=== PATIENT | female | born 1935 | race Caucasian/White ===

== ENCOUNTER 2021-07-06 02:20 | Emergency (ER) | payer SELFPAY ==
[2021-07-06] MEDS ORDERED: Morphine 4 MG/ML VIAL ONE (04:05)
[2021-07-06] MEDS ORDERED: Ondansetron PF 4 MG/2 ML Vial ONE ×2 (04:05→04:44)
[2021-07-06] MEDS ORDERED: Ibuprofen 200 MG TAB ONE (04:11)
[2021-07-06] MEDS ORDERED: Fentanyl 100 MCG/2 ML VIAL ONE (04:30)
[2021-07-06 04:31] LABS: #Basophils 0.1 thou/uL (0.0-0.2); #Eosinphils 0.1 thou/uL (0.0-0.7); #Lymphocytes 1.2 thou/uL (1.20-3.40); #Monocytes 0.4 thou/uL (0.11-0.59); #Neutrophils 6.7 thou/uL (1.40-6.50); %Basophils 0.6 % (0.0-1.0); %Eosinophils 0.9 % (0.0-10.0); %Lymphocytes 13.9 % (21.0-51.0); %Monocytes 4.4 % (0.0-10.0); %Neutrophils 80.1 % (42.0-75.0); Hemoglobin 16.9 g/dL (12.0-16.0); Mean Corpuscular HGB CONC 33.9 g/dL (32.0-36.0); Mean Corpuscular Hemoglobin 30.8 pg (27.0-31.0); Mean Corpuscular Volume 90.9 fL (78.0-98.0); Mean Platelet Volume 7.4 fL (7.4-10.4); Platelet Count 258 thou/uL (130-400); RBC Distribution Width 11.8 % (11.5-14.5); Red Blood Cell (RBC) Count 5.47 mill/uL (4.20-5.40); White Blood Cell (WBC) Count 8.4 thou/uL (4.8-10.8)
[2021-07-06 04:53] LABS: ALT (SGPT) 19 U/L (8-55); AST (SGOT) 22 U/L (5-34); Albumin 4.4 g/dL (3.4-4.8); Alkaline Phosphatase 61 U/L (40-110); Anion Gap 14 mmol/L (10-20); BUN (Urea Nitrogen) 20 mg/dL (9.8-20.1); Bilirubin, Total 0.9 mg/dL (0.2-1.2); Calc. Creatinine Clearance 0 mL/min (70-130); Calcium 9.8 mg/dL (7.8-10.44); Carbon Dioxide 26 mmol/L (23-31); Chloride 99 mmol/L (98-107); Globulin 3.8 g/dL (2.4-3.5); Glucose 134 mg/dL (83-110); Lipase 12 U/L (8-78); Potassium 3.4 mmol/L (3.5-5.1); Protein, Total 8.2 g/dL (5.8-8.1); Sodium 136 mmol/L (136-145)
[2021-07-06 09:23] LABS: INR-International Normal Ratio 1.9; Prothrombin Time 21.8 sec (12.0-14.7)
[2021-07-06 09:24] LABS: PTT 35.2 sec (22.9-36.1)
[2021-07-06] MEDS ORDERED: Iopamidol 370 76% 100 ML VIAL ONE (13:16)
== END 2021-07-06 09:41 | disposition home or self-care (01) ==
LOC: ERS 02:20
DX: S36.62XA Contusion of rectum, initial encounter (principal); K86.89 Other specified diseases of pancreas; Z86.73 Personal history of transient ischemic attack (TIA), and cerebral infarction without residual deficits
CPT/HCPCS: 36415; 74177; 80053; 83690; 85025; 85610; 85730; 96374; 96375; J2270; J2405; J3010; Q9967

== ENCOUNTER 2023-07-11 13:27 | Emergency (ER) | payer MEDICARE ==
[2023-07-11] MEDS ORDERED: Ketorolac Tromethamine 30 MG/ML VIAL ONE (15:45)
== END 2023-07-11 16:05 | disposition home or self-care (01) ==
LOC: ERS 13:27
DX: S22.32XA Fracture of one rib, left side, initial encounter for closed fracture (principal); Z79.01 Long term (current) use of anticoagulants; Z86.73 Personal history of transient ischemic attack (TIA), and cerebral infarction without residual deficits; W19.XXXA Unspecified fall, initial encounter
CPT/HCPCS: 71046; J1885

== ENCOUNTER 2024-06-02 08:37 | Emergency (ER) | payer MEDICARE ==
[2024-06-02 09:33] LABS: #Basophils Less than 0.03 10x3/uL (0.0-0.2); %Basophils 0.3 % (0.0-1.0); %Eosinophils 0.6 % (0.0-10.0); %Lymphocytes 19.3 % (21.0-51.0); %Neutrophils 69.3 % (42.0-75.0); Hematocrit 40.2 % (36.0-47.0); Hemoglobin 13.2 g/dL (12.0-16.0); Mean Corpuscular HGB CONC 32.8 g/dL (32.0-36.0); Mean Corpuscular Hemoglobin 30.7 pg (27.0-31.0); Mean Corpuscular Volume 93.5 fL (78.0-98.0); Mean Platelet Volume 10.4 fL (7.4-10.4); Platelet Count 236 10x3/uL (130-400); RBC Distribution Width 13.2 % (11.5-14.5)
[2024-06-02] MEDS ORDERED: Bacitracin 1 PK ONE (09:36)
[2024-06-02 09:43] LABS: ALT (SGPT) 14 U/L (8-55); AST (SGOT) 19 U/L (5-34); Albumin 3.4 g/dL (3.4-4.8); Alkaline Phosphatase 45 U/L (40-110); Anion Gap 16 mmol/L (10-20); BUN (Urea Nitrogen) 36 mg/dL (9.8-20.1); Bilirubin, Total 1.5 mg/dL (0.2-1.2); Calc. Creatinine Clearance 0 mL/min (70-130); Calcium 8.9 mg/dL (7.8-10.44); Carbon Dioxide 24 mmol/L (23-31); Chloride 105 mmol/L (98-107); Estimated GFR 58; Globulin 3.2 g/dL (2.4-3.5); Glucose 119 mg/dL (83-110); Potassium 3.5 mmol/L (3.5-5.1); Protein, Total 6.6 g/dL (5.8-8.1); Sodium 141 mmol/L (136-145)
[2024-06-02 09:51] LABS: INR-International Normal Ratio 2.4; PTT 33.9 sec (22.9-36.1); Prothrombin Time 26.2 sec (12.0-14.7)
== END 2024-06-02 12:36 | disposition home or self-care (01) ==
LOC: ERS 08:37
DX: S42.032A Displaced fracture of lateral end of left clavicle, initial encounter for closed fracture (principal); S51.012A Laceration without foreign body of left elbow, initial encounter; S50.12XA Contusion of left forearm, initial encounter; S05.12XA Contusion of eyeball and orbital tissues, left eye, initial encounter; S09.90XA Unspecified injury of head, initial encounter; M25.552 Pain in left hip; I10 Essential (primary) hypertension; W10.1XXA Fall (on)(from) sidewalk curb, initial encounter; Y93.89 Activity, other specified; Z86.73 Personal history of transient ischemic attack (TIA), and cerebral infarction without residual deficits; Z87.891 Personal history of nicotine dependence
CPT/HCPCS: 36415; 70450; 70486; 72125; 80053; 85025; 85610; 85730